=== PATIENT | female | born 1990 ===

== ENCOUNTER 2023-04-08 09:32 | Emergency (ER) | payer SELFPAY ==
[~2023-04-08] VITALS: Ht 152.4 cm; Wt 54.5 kg
--- NOTE | 2023-04-08 09:47 | NUR ---
Pt ref to have cardiac monitors. Pt ref to answer any questions at this time.
[2023-04-08 10:18] VITALS: BP 99/75
== END 2023-04-08 10:32 | disposition left against medical advice (07) ==
LOC: ER 09:32
DX: R45.1 Restlessness and agitation (principal); F41.9 Anxiety disorder, unspecified
CPT/HCPCS: 99283